=== PATIENT | male | born 1950 | race Caucasian/White ===

== ENCOUNTER 2019-07-27 12:20 | Emergency (ER) | payer OTHER, BC ==
[~2019-07-27] VITALS: Ht 180.3 cm; Wt 104.3 kg
[2019-07-27] MEDS ORDERED: BENICAR HCT 201 EACH PO (12:35)
[2019-07-27] MEDS ORDERED: ORPHENADRINE C100 MG PO (16:28)
[2019-07-27] MEDS ORDERED: KETO10TA2 PO (16:28)
[2019-07-27] MEDS ORDERED: ULTRACET PO (16:28)
[2019-07-27] MEDS ORDERED: MEDROLPACK PO (16:28)
== END 2019-07-27 17:23 | disposition home or self-care (01) ==
LOC: ER 12:20
DX: M54.42 Lumbago with sciatica, left side (principal)